=== PATIENT | female | born 1995 | race Caucasian/White ===

== ENCOUNTER 2017-01-02 19:39 | Emergency (ER) | payer MEDICAID, OTHER ==
[~2017-01-02] VITALS: Ht 165.1 cm; Wt 89.1 kg
[~2017-01-02 19:39] MED LIST: ACYC400T2 PO; Ibuprofen PO; NITR100C PO; ONDA4TAB6 PO; PROM25TA14 PO
[2017-01-02 19:50] VITALS: BP 138/89; PULSE 89; RESP 16; O2SAT 99
--- NOTE | 2017-01-02 21:01 | ED.REPORT ---
HPI-Rash / Abscess Date of Service Jan 02, 2017 ED Provider: Ahsan Ingram MD A 21 year old female with a history of allergic reactions to multiple antibiotics presents to the ED complaining of pain and swelling in left breast onset 0200 today. She has had pain in her left breast on and off over the past few weeks. Symptoms are making it very difficult to breast feed her child. Per nurse note, associated symptoms include chills and nausea.The patient has taken Tylenol at home with no relief, last taking Tylenol at 1600. She denies any past breast infections. In 6th grade, she took amoxicillin and had a hive-like rash all over her body. During the delivery of her child, she was given clindamycin and subsequently experienced itching sensation but no lip or tongue swelling. Nursing Notes Stated Complaint: LEFT BREAST PAIN, CHILLS, NAUSEA Chief Complaint: General Complaint Nursing Notes Reviewed: Yes ([employer], meds not reconciled) Allergies: Coded Allergies: amoxicillin (Verified Allergy, Severe, HIVES, 01/02/17) vancomycin (Verified Allergy, Intermediate, itchy palms, itchy head , 01/02) Penicillins (Verified Allergy, Unknown, HIVES, 01/02/17) clindamycin (Verified Allergy, Unknown, Hives, 01/02/17) No Active Prescriptions or Reported Meds General Time Seen by MD: 20:58 Chief Complaint Other (pain in left breast. 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 She denies any history of breast infections. Past Surgical History none reported. Smoking History Unknown if Ever Smoker Social History Alcohol Use: Denies alcohol use Other Social History: Good social support, Lives with children, Local resident Ambulatory Status Independent Review of Systems Review of Systems Note: Pain in left breast. Skin: Reports Swelling (left breast.) Complete sys rev & neg: except as marked. Physical Exam Initial Vital Signs Vital Signs (First) Date Time Temp Pulse Resp B/P Pulse Ox O2 Delivery O2 Flow Rate FiO2 01/02/17 19:50 38.2 89 16 138/89 99 Room Air Initial VS: Reviewed, Vital signs abnormal (fever) General/Constitutional: Awake, Alert, Well appearing, Not toxic appearing Patient has cellulitis surrounding left breast. There is tenderness and mild induration but no miguel fluctuance. Area of cellulitis is circumscribed. Head / Eyes: Atraumatic, Normocephalic, PERRL, EOMI ENT: Atraumatic, Mucous membranes moist Respiratory / Chest: Atraumatic, Breath sounds NL, Breath sounds = bilat, No respiratory distress, No rales, No rhonchi, No wheezing Cardiovascular: Heart rate NL, Regular rhythm, Heart sounds NL, No gallop, No murmurs, No rubs Upper Extremity / MS: No swelling, No edema Lower Extremity / Pelvis / MS: No swelling, No edema Neurologic: Oriented X3, Speech NL Neck: Atraumatic, No swelling Abdomen: No guarding, No rebound Wrist / Hand: No swelling, No edema Ankle / Foot: No swelling, No edema Interpretation & Diagnostics Interpretation & Diagnostics: PROCEDURE: US BREAST LIMITED SONOGRAM, LEFT IMPRESSION: 1. No discrete drainable abscess collection identified. 2. Irregular hypoechoic region in the left breast at the 2:00 position suggestive of phlegmon. Recommend followup in 3 months to demonstrate resolution. BIRADS 3: Probably benign. Dictated by: Zhen Newton M.D. on 01/02/2017 at 22:22 Approved by: Zhen Newton M.D. on 01/02/2017 at 22:25 Lab Results Interpretation Result Diagram: 01/02/17210901/02/172109 Test 01/02/17 20:49 01/02/17 21:10 Hold Urine Received (Received) White Blood Count 11.1th/mm3 (3.8-10.1) Red Blood Count 4.37mil/mm3 (3.90-5.20) Hemoglobin 11.9g/dL (12.0-15.6) Hematocrit 37.6% (35.0-46.0) Mean Corpuscular Volume 86.0fL (81-100) Mean Corpuscular Hemoglobin 27.2pg (27.0-35.0) Mean Corpuscular Hemoglobin Concent 31.6% (32.0-37.0) Red Cell Distribution Width 12.9% (12.3-15.4) Platelet Count 290bil/L (150-400) Neutrophils (%) (Auto) 73.8% (40-74) Lymphocytes (%) (Auto) 17.1% (14-46) Monocytes (%) (Auto) 7.8% (4-12) Eosinophils (%) (Auto) 1.0% (0-5) Basophils (%) (Auto) 0.1% (0-3) Sodium Level 139mEq/L (134-144) Potassium Level 4.1mEq/L (3.5-5.2) Chloride Level 102mEq/L (97-108) Carbon Dioxide Level 23mmol/L (18-29) Blood Urea Nitrogen 18mg/dL (6-20) Creatinine 0.51mg/dL (0.57-1.00) Estimat Glomerular Filtration Rate 216mL/min (>59) Glucose Level 91mg/dL (60-99) Lactic Acid Level 0.9mmol/L (0.4-2.0) Calcium Level 9.5mg/dL (8.5-10.1) Total Bilirubin 0.2mg/dL (0.0-1.2) Aspartate Amino Transf (AST/SGOT) 21U/L (0-50) Alanine Aminotransferase (ALT/SGPT) 19U/L (0-32) Alkaline Phosphatase 70U/L (25-150) Total Protein 7.6g/dL (6.4-8.4) Albumin 4.3g/dL (3.4-5.0) Lab Results Interpretation: CBC possible leukocytosis & CMP normal Re-Eval/Medical Decision Med Decision/Clinical Course This is a 21-year-old female who presents with redness swelling and pain of the left breast. She is breast-feeding, has had some intermittent discomfort for the past few days, then last night became constant and increasingly painful and so came to the ED. Department she describes a sense of fever, chills, little bit nauseous well. His low-grade fever, and has overt mastitis with cellulitis of the left breast on clinical exam. The severity of induration subsequently could not exclude a deep abscess, but no definitive abscess was evident on physical exam. Ultrasound did not reveal any clear signs of miguel Chest either. The patient has a conjugate allergy pattern-the pharmacy was consult for their thoughts, the most row allergies or some general intolerances and not clearly definitive. The patient received Ancef and tolerated this without difficulty, and is being discharged on cephalexin plus Bactrim for strep and MRSA coverage. Patient received Tylenol and Toradol. She initially declined any further pain medicine was explained in some pain medicine to cross into the breast milk. However after further thought she is accepted some hydrocodone. Patient is being discharged in improved condition. Routine precautions reviewed. Source of Hx: Old records Re-Evaluation/Progress : Time of Eval: 22:58 Re-Evaluation/Progress Note: Rechecked patient. Consultation : Call Returned at: 21:15 Note: Consulted with pharmacy about antibiotic options for patient. Differential Diagnosis: Positive: Cellulitis, Negative: AIDS/HIV, Abscess, Anthrax, cutaneous, Gangrene, Hand, foot, mouth disease, Heat rash, miliaria, Henoch-Schonlein purpura, Osteomyelitis, Andrzej mt spotted fever, Rosacea Counseled Regarding: Diagnosis, Lab results, Need for follow-up, When/why to return to ED Discharge & Departure Impression: Primary Impression: Mastitis, left, acute Disposition: Home Discharge Condition All VS Reviewed: Yes Condition: Improved Additional Instructions: 1. You have an infection around the left breast-this is called mastitis. No abscess or deep space infection was appreciated on ultrasound. 2. You received an injection of the antibiotic Ancef tonight. Starting tomorrow he needs to take 2 antibiotics. First take cephalexin 500 mg 3 times a day, second take trimethoprim sulfa 1 tablet twice a day until he had a boxer done. 3. It usually takes 24-36 hours for symptoms started to improve after beginning antibiotics-if not improving, or if worsening, return to the emergency department. 4. Take ibuprofen 400-800 mg 3 times a day for pain/fever. 5. Can also take Tylenol 1000 mg 4 times a day for pain/fever. 6. If needed for more severe pain, instead of Tylenol you can take hydrocodone/ APAP 5/325 1/2 tab up to 2 tabs up to every 4-6 hours. Note: This medication does obtain an narcotic and causes some drowsiness. It also contains some Tylenol. Finally does cross slightly in the breast milk, although is generally considered safe. 7. Follow up with your regular doctor in 1 week Referrals: NOPCP (PCP) Scribe Attestation Portions of this note were transcribed by Chi Sorensen. I, Dr. Ingram personally performed the history, physical exam and medical decision-making; I reviewed and confirmed the accuracy of the information in the transcribed note. Signed by: Gonzalez Licea, 01/03/2017 0002. copies to: Ahsan Burciaga MD Jan 02, 2017 21:01 Chi Sorensen Jan 02, 2017 21:09
[2017-01-02 21:20] LABS: BASOPHILS % (AUTO) 0.1 % (0-3); MONOCYTES % (AUTO) 7.8 % (4-12); Mean Corpuscular Hemoglobin 27.2 pg (27.0-35.0); NEUTROPHILS % (AUTO) 73.8 % (40-74); Platelet Count 290 bil/L (150-400)
[2017-01-02] MEDS ORDERED: CeFAZolin Inj 1 GM in IV Premix 1 EACH IV ONE (21:40)
--- NOTE | 2017-01-02 22:27 | DRSVH ---
PROCEDURE: US BREAST LIMITED SONOGRAM, LEFT INDICATIONS: 21 year-old lactating female with left breast pain, chills, nausea, and redness. TECHNIQUE: Real-time focused scanning was performed of the left breast with image documentation. COMPARISON: None. FINDINGS: Ultrasound evaluation of the left breast in the area of clinical concern centered at the 2:00 positio n 1 cm from the nipple demonstrates no discrete drainable fluid collection. There is an irregular hy poechoic region measuring approximately 4.7 x 1.9 x 2.7 cm. Internal vascularity demonstrated in thi s region. There are a few bilateral prominent retroareolar ducts noted. IMPRESSION: 1. No discrete drainable abscess collection identified. 2. Irregular hypoechoic region in the left breast at the 2:00 position suggestive of phlegmon. Andrew mmend followup in 3 months to demonstrate resolution. BIRADS 3: Probably benign. Dictated by: Zhen Newton M.D. on 01/02/2017 at 22:22 Approved by: Zhen Newton M.D. on 01/02/2017 at 22:25
[2017-01-02] MEDS ORDERED: HYDROcodone-APAP 5-325 mg Tablet PO ONE (23:15)
[2017-01-02] MEDS ORDERED: _HYDROcodone/APAP 5-325 mg Tablet PO PRN (23:15)
[2017-01-02 23:31] VITALS: BP 102/53; PULSE 66; O2SAT 98
[2017-01-02 23:34] VITALS: BP 102/53; PULSE 66; O2SAT 98
[2017-01-03] MEDS ORDERED: _Trimethoprim-Sulfa 160/800 mg Tablet PO SCH (08:30)
[2017-01-03] MEDS ORDERED: _Cephalexin 500 mg Capsule PO SCH (08:30)
== END 2017-01-02 23:53 | disposition home or self-care (01) ==
LOC: SED 19:39
DX: N61.0 Mastitis without abscess (principal); R11.0 Nausea; Z88.0 Allergy status to penicillin; Z88.1 Allergy status to other antibiotic agents
CPT/HCPCS: 36415; 76642; 80053; 83605; 85025; 87040; 96365; 96375; 99285; J0690; J1885

== ENCOUNTER 2017-02-19 10:11 | Emergency (ER) | payer OTHER ==
[~2017-02-19] VITALS: Ht 165.1 cm; Wt 89.1 kg
[2017-02-19 10:16] VITALS: BP 110/69; PULSE 54; RESP 18; O2SAT 96
[2017-02-19] MEDS ORDERED: 0.9% Sodium Chloride 1,000 ML IV ONE (11:16)
[2017-02-19] MEDS ORDERED: Dexamethasone 10 mg/mL Inj IVPUSH ONE (11:20)
[2017-02-19] MEDS ORDERED: MetoCLOpramide 5 mg/mL 2 mL Inj IVPUSH ONE (11:20)
--- NOTE | 2017-02-19 11:25 | ED.REPORT ---
HPI-Headache Date of Service February 19, 2017 ED Provider: Clemente Pond PA-C Dominique is an otherwise healthy 21-year-old female presenting with a chief complaint of headache. Patient states her symptoms began on , roughly 5 days ago, with nausea first noted in the morning. The following day on Sunday she began to notice an 8/10, pounding global headache with associated neck pain. Her headache is aggravated by coughing or turning her head. She also noted fevers of approximately 102 at night. Also complains of reduced appetite, hot flashes, 4-5 episodes of watery diarrhea per day, and episodes of dizziness apparently provoked by increases in her nausea. Denies vomiting, abdominal pain, cough, wheeze, shortness of breath, chest pain, urinary symptoms , bloody/tarry stool. Denies or history of headaches. 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 She denies any history of breast infections. Past Surgical History none reported. Smoking History Unknown if Ever Smoker Social History Alcohol Use: Denies alcohol use Other Social History: Good social support, Lives with children, Local resident Ambulatory Status Independent Review of Systems General: Admits fever, malaise HEENT: Admits headache, denies congestion, sore throat. Respiratory: Denies dyspnea, cough, shortness of breath, wheezing. Cardiovascular: Denies chest pain, palpitations. Gastrointestinal: Admits diarrhea, denies vomiting, abdominal pain Genitourinary: Denies frequency, urgency, dysuria, hematuria. Otherwise as noted in HPI. Physical Exam General: Well appearing, well developed, well nourished, no acute distress. Head: Atraumatic, normocephalic. No mastoid tenderness. Eyes: No scleral icterus or injection. No discharge. PERRL. Vision grossly intact. Ears: Pinna and tragus nontender with manipulation. External auditory canal patent, atraumatic and without discharge. Tympanic membrane lugo, shiny and translucent without fluid, bulging, retraction or perforation. Hearing grossly intact. Nose: Symmetrical, nares patent without discharge. No frontal or maxillary sinus tenderness. Mouth/pharynx: normal dentition, mucus membranes moist. Tonsils 2+ and symmetrical, uvula midline. Pharynx noninjected, no cobblestoning or discharge. Voice clear. Neck: Supple, excellent range of motion. No tenderness or lymphadenopathy. Trachea midline. Respiratory: Regular rate and rhythm. Breath sounds present, clear to auscultation and equal bilaterally. No respiratory distress. No increased work of breathing, speaks in complete sentences. Cardiovascular: Regular rate and rhythm, without murmur, gallop or rub. No pedal edema. Gastrointestinal: Abdomen flat and non-tender without guarding or rebound. Bowel sounds normoactive. Skin: Warm and dry. Back: Negative CVA tenderness. Neurological: Normal finger-nose, rapid hand, heel-lin. Negative pronator drift. Negative Kernig and Brudzinski. Cranial nerves: Vision grossly intact, PERRL, EOMI. Facial motion symmetrical, sensation to light touch over forehead, maxilla and mandible present and equal B /L. Voice clear and fluent, no drooling/pooling of saliva, uvula rises midline. Psychological: Alert and oriented. Speech appropriate, linear and logical. Behavior appropriate. Initial Vital Signs Vital Signs (First) Date Time Temp Pulse Resp B/P Pulse Ox O2 Delivery O2 Flow Rate FiO2 02/19/17 10:16 37.1 54 18 110/69 96 Room Air Initial VS: Vital signs normal Interpretation & Diagnostics Lab Results Interpretation Result Diagram: 02/19/17 1200 02/19/17 1245 Test 02/19/17 12:00 02/19/17 12:45 White Blood Count 5.8th/mm3 (3.8-10.1) Red Blood Count 4.54mil/mm3 (3.90-5.20) Hemoglobin 12.6g/dL (12.0-15.6) Hematocrit 38.0% (35.0-46.0) Mean Corpuscular Volume 83.7fL (81-100) Mean Corpuscular Hemoglobin 27.8pg (27.0-35.0) Mean Corpuscular Hemoglobin Concent 33.2% (32.0-37.0) Red Cell Distribution Width 13.4% (12.3-15.4) Platelet Count 252bil/L (150-400) Neutrophils (%) (Auto) 62.7% (40-74) Lymphocytes (%) (Auto) 26.0% (14-46) Monocytes (%) (Auto) 9.2% (4-12) Eosinophils (%) (Auto) 1.7% (0-5) Basophils (%) (Auto) 0.2% (0-3) Sodium Level 141mEq/L (134-144) Potassium Level 3.5mEq/L (3.5-5.2) Chloride Level 106mEq/L (97-108) Carbon Dioxide Level 21mmol/L (18-29) Blood Urea Nitrogen 8mg/dL (6-20) Creatinine 0.47mg/dL (0.57-1.00) Estimat Glomerular Filtration Rate 237mL/min (>59) Glucose Level 93mg/dL (60-99) Calcium Level 8.4mg/dL (8.5-10.1) Re-Eval/Medical Decision Med Decision/Clinical Course Otherwise healthy 21-year-old female presenting with chief complaint of insidious onset headache associated with nausea for approximately 5 days. Admits intermittent fever, diarrhea as well as neck pain. Denies neurologic symptoms, vomiting. Physical examination is benign with a normal neurological examination, nontender abdomen, supple neck and negative Kernig/Brudzinski. She is afebrile. CBC is normal and CMP reveals very mild hypocalcemia, which I do not think is clinically significant. Patient was not as well to acetaminophen, ketorolac, normal saline, metoclopramide, dexamethasone, diphenhydramine, with complete solution of both headache and nausea. Patient states she feels much better and wishes to be discharged home. I discussed this case with . We are reassured that immediately dangerous causes of her headache such as meningitis, mass, subarachnoid hemorrhage, carotid dissection are unlikely. I believe she is stable safely discharged home. Advised regarding [id number] analgesia and prescribed moclobemide. Provided primary care follow-up referral, advised emergency return precautions. Patient verbalizes understanding of and consent to the plan Re-Evaluation/Progress : Time of Eval: 12:47 Re-Evaluation/Progress Note: Patient feels significantly better, rating her headache is 0 out of 10 and her nausea resolved. Discharge & Departure Impression: Primary Impression: Headache Headache type: unspecified Headache chronicity pattern: acute headache Intractability: not intractable Qualified Code: R51 - Headache Additional Impression: Nausea Disposition: Home Discharge Condition All VS Reviewed: Yes Condition: Stable Patient Instructions: Acute Headache (GEN) Additional Instructions: Evaluation in the emergency department for headache includes history, physical examination and blood tests, all of which are reassuringly her symptoms are unlikely to be caused by an immediately dangerous conditions such as meningitis. I believe you are stable and safe to be discharged home. I will write you a prescription for metoclopramide (Reglan), which is antinausea medication that you found helpful here in the emergency department. you can take this up to 3 times a day if your nausea returns. History of headache returns, I recommended 400 mg of ibuprofen along with 1000 mg of acetaminophen. You can add 25 mg of Benadryl to this as well as the metoclopramide (Reglan). Follow-up with your primary care provider if your symptoms persist. Return to emergency department for any new or worsening symptoms including a new or different headache, changes in your vision, neurological symptoms, fever. Referrals: [facility] Provider for APC: Namrata Segura MD, Seth PA-C February 19, 2017 11:25
[2017-02-19 12:24] LABS: BASOPHILS % (AUTO) 0.2 % (0-3); EOSINOPHILS % (AUTO) 1.7 % (0-5); MONOCYTES % (AUTO) 9.2 % (4-12); Mean Corpuscular Hemoglobin 27.8 pg (27.0-35.0); Mean Corpuscular Volume 83.7 fL (81-100); NEUTROPHILS % (AUTO) 62.7 % (40-74); Platelet Count 252 bil/L (150-400)
[2017-02-19] MEDS ORDERED: METO10TA3 PO (13:12)
[2017-02-19 13:21] VITALS: BP 89/50; PULSE 50; RESP 16; O2SAT 99
== END 2017-02-19 13:22 | disposition home or self-care (01) ==
LOC: SED 10:11
DX: R51 Headache (principal); R11.0 Nausea; R50.9 Fever, unspecified; M54.2 Cervicalgia; R19.7 Diarrhea, unspecified; Z88.1 Allergy status to other antibiotic agents; Z88.0 Allergy status to penicillin
CPT/HCPCS: 36415; 80048; 85025; 96361; 96372; 96374; 96375; 99285; J1100; J1200; J1885; J2765; J7030